=== PATIENT | female | born 2000 | race African-American/Black ===

== ENCOUNTER 2024-06-04 01:38 | Emergency (ER) | payer OTHER ==
[~2024-06-04] VITALS: Ht 165.1 cm; Wt 81.6 kg
[2024-06-04 01:41] VITALS: BP 118/71; PULSE 74; RESP 16; TEMP 97.6; O2SAT 100
[2024-06-04 01:49] VITALS: BP 118/71; PULSE 74; RESP 16; TEMP 97.6; O2SAT 100
== END 2024-06-04 04:15 | disposition left against medical advice (07) ==
LOC: MED 01:38
DX: R07.9 Chest pain, unspecified (principal); R06.02 Shortness of breath; Z53.21 Procedure and treatment not carried out due to patient leaving prior to being seen by health care provider
CPT/HCPCS: 93005